=== PATIENT | female | born 1930 | race Asian ===

== ENCOUNTER 2016-12-11 11:01 | Emergency (ER) | payer MEDICARE ==
[~2016-12-11] VITALS: Ht 149.9 cm; Wt 62.5 kg
[~2016-12-11 11:01] MED LIST: ALLOPURINOL PO; ASPI-556 PO; CALC-789 PO; ISOS30TA6 PO; METF500T4 PO; OMEP20 PO; VALS320T2 PO
[2016-12-11 11:31] LABS: GLUCOSE,POINT OF CARE 208 MG/DL (70-110)
[2016-12-11] MEDS ORDERED: LOSA25TA21 PO (11:32)
[2016-12-11] MEDS ORDERED: ATOR20TA86 PO (11:32)
[2016-12-11] MEDS ORDERED: GLIP5 PO (11:32)
[2016-12-11] MEDS ORDERED: METO25 PO (11:32)
[2016-12-11 13:07] LABS: INFLUENZA TYPE B NEGATIVE FOR TYPE B (NEGATIVE)
[2016-12-11 14:43] LABS: BASOPHILS % (AUTO) 0.1 % (0.0-2.0); EOSINOPHILS % (AUTO) 1.1 % (1.0-6.0); HEMATOCRIT 28.5 % (36-46); HEMOGLOBIN 9.3 g/dL (12.0-16.0); LYMPHOCYTES % (AUTO) 14.8 % (22.0-44.0); MEAN CORPUSCULAR HEMOGLOBIN 30.2 pg (26.0-34.0); MEAN CORPUSCULAR HGB CONC 32.7 G/dL (31.0-37.0); MEAN CORPUSCULAR VOLUME 92 fL (80-100); MONOCYTES # (AUTO) 1.5 K/uL (0.1-1.0); NEUTROPHILS # (AUTO) 9.8 K/uL (1.8-7.7); PLATELET COUNT (AUTO) 297 K/uL (150-450); RED BLOOD CELL COUNT(AUTO) 3.09 MIL/uL (4.00-5.20); RED CELL DISTRIBUTION WIDTH 14.8 % (11.5-14.5); WHITE BLOOD COUNT (AUTO) 13.5 K/uL (4.5-11.0)
[2016-12-11 14:53] LABS: ANION GAP 9 mmol/L (8-16); CALCIUM, TOTAL 9.7 mg/dL (8.8-10.5); CARBON DIOXIDE 24 mmol/L (22-29); CHLORIDE 96 mmol/L (98-107); CREATININE 0.96 mg/dL (0.60-1.30); GLOMERULAR FILTR. RATE CALC 55 mL/min (>60); POTASSIUM 3.6 mmol/L (3.5-5.1); SODIUM SERUM 129 mmol/L (136-145); UREA NITROGEN, BLOOD 19 mg/dL (7-18)
[2016-12-11 15:03] LABS: B-TYPE NATRIURETIC PEPTIDE 1210 pg/mL (0-100)
[2016-12-11 15:14] LABS: APPEARANCE,URINE CLEAR (CLEAR); GLUCOSE, URINE (UA) NEGATIVE (NEGATIVE); KETONES,URINE NEGATIVE (NEGATIVE); LEUKOCYTE ESTERASE ,URINE MODERATE (NEGATIVE); OCCULT BLOOD,URINE MODERATE (NEGATIVE); PROTEIN,URINE SEE CONFIRM (NEGATIVE)
[2016-12-11 15:15] LABS: ADD UA MICROSCOPIC YES; SULFOSALICYLIC ACID,URINE 3+ (Negative)
[2016-12-11 15:16] LABS: WBC,URINE 26-50 /HPF (0-5)
[2016-12-11 15:17] LABS: ALANINE AMINOTRANSFERASE 42 U/L (12-78); ALBUMIN 2.9 g/dL (3.4-5.0); ASPARTATE AMINOTRANSFERASE 21 U/L (15-37); BILIRUBIN,TOTAL 0.7 mg/dL (0.1-1.0); CREATINE KINASE MB 1.3 ng/mL (0-5); CREATINE KINASE, TOTAL 114 U/L (26-192); TOTAL PROTEIN, SERUM 7.1 g/dL (6.4-8.2)
[2016-12-11] MEDS ORDERED: FUROSEMIDE 20 MG TABLET PO ONE (16:15)
[2016-12-11] MEDS ORDERED: CefTRIAXone SODIUM 1 GM/VIAL IM ONE (16:15)
[2016-12-11] MEDS ORDERED: LIDOCAINE HCL/PF 1% 2 ML VIAL IM ONE (16:15)
[2016-12-11] MEDS ORDERED: SODIUM CHLORIDE 1 GM TABLET PO ONE (16:15)
[2016-12-11 16:21] VITALS: BP 162/99
[2016-12-11] MEDS ORDERED: FUROSEMIDE 40 MG/4 ML VIAL IVP ONE (16:30)
[2016-12-11] MEDS ORDERED: METOPROLOL TARTRATE 25 MG TABLET PO ONE (16:30)
[2016-12-11] MEDS ORDERED: CefTRIAXone 1 GM/DEXTROSE 50 ML IV ONE (16:30)
== END 2016-12-11 17:24 | disposition home or self-care (01) ==
LOC: EMS 11:03
DX: J18.0 Bronchopneumonia, unspecified organism (principal); I11.0 Hypertensive heart disease with heart failure; I50.9 Heart failure, unspecified; N39.0 Urinary tract infection, site not specified; E87.1 Hypo-osmolality and hyponatremia; E78.00 Pure hypercholesterolemia, unspecified; E11.9 Type 2 diabetes mellitus without complications; Z79.82 Long term (current) use of aspirin
CPT/HCPCS: 36415; 71020; 80053; 81001; 81002; 82550; 82553; 82962; 83690; 83880; 84484; 85025; 87077; 87086; 87186; 87804; 93005; 96365; 96375; 99285; J0696; J1940